=== PATIENT | female | born 1955 | race Caucasian/White ===

== ENCOUNTER 2018-06-19 16:27 | Emergency (ER) | payer MEDICARE ==
[~2018-06-19] VITALS: Ht 162.6 cm; Wt 64.0 kg
[2018-06-19 19:11] VITALS: BP 166/74
== END 2018-06-19 19:26 | disposition home or self-care (01) ==
LOC: ED 19:20
DX: S82.001A Unspecified fracture of right patella, initial encounter for closed fracture (principal); W19.XXXA Unspecified fall, initial encounter; Y93.89 Activity, other specified; Y92.89 Other specified places as the place of occurrence of the external cause; Y99.8 Other external cause status
CPT/HCPCS: 29505; 99284